=== PATIENT | male | born 1980 | race Caucasian/White ===

== ENCOUNTER 2024-03-11 03:00 | Emergency (ER) | payer SELFPAY ==
[2024-03-11] MEDS: Lidocaine 1% 10 ML MDV INJECT ONE ×2 (05:14)
[2024-03-11] MEDS: Lidocaine 1% 10 ML MDV ONE (05:15)
== END 2024-03-11 05:37 | disposition home or self-care (01) ==
LOC: VM.ED 03:00
DX: S61.210A Laceration without foreign body of right index finger without damage to nail, initial encounter (principal); S61.212A Laceration without foreign body of right middle finger without damage to nail, initial encounter; S61.214A Laceration without foreign body of right ring finger without damage to nail, initial encounter; S61.216A Laceration without foreign body of right little finger without damage to nail, initial encounter; W26.8XXA Contact with other sharp object(s), not elsewhere classified, initial encounter
CPT/HCPCS: 12002; 99282; J3490